=== PATIENT | male | born 1990 | race African-American/Black ===

== ENCOUNTER 2017-05-02 08:06 | Emergency (ER) | payer OTHER ==
[2017-05-02] MEDS: ONDANSETRON (ODT) 4 MG TAB ODT (09:02)
[2017-05-02] MEDS: ACETAMINOPHEN 325 MG TAB PO (09:02)
== END 2017-05-02 10:04 | disposition home or self-care (01) ==
LOC: FTE 08:06
DX: J10.1 Influenza due to other identified influenza virus with other respiratory manifestations (principal)
CPT/HCPCS: 71010; 87400; 99284-25